=== PATIENT | female | born 1985 | race Caucasian/White ===

== ENCOUNTER → 2018-01-28 | Outpatient (CLI) | payer BC ==
[2018-01-28 13:13] VITALS: BMI 33.0
== END | disposition home or self-care (01) ==
LOC: DBWHC3 10:43
PROVIDERS: ATTEND Obstetrics & Gynecology Obstetrics
DX: O24.419 Gestational diabetes mellitus in pregnancy, unspecified control (principal); Z3A.00 Weeks of gestation of pregnancy not specified
CPT/HCPCS: G0108 ×2

== ENCOUNTER 2018-03-29 06:00 | Inpatient (IN) | payer BC ==
[2018-03-29] MEDS ORDERED: TERBUTALINE 1 MG/ML VIAL SQ PRN (06:19)
[2018-03-29] MEDS ORDERED: OXYTOCIN 10 UNIT/ML 1 ML VIAL IM PRN (06:19)
[2018-03-29] MEDS ORDERED: LIDOCAINE 1% (PF) 10 MG/ML (30 ML SDV) SQ PRN (06:19)
[2018-03-29] MEDS ORDERED: CARBOPROST TROMETHAMINE 250 MCG/ML 1 ML AMP IM PRN (06:19)
[2018-03-29] MEDS ORDERED: METHYLERGONOVINE 0.2 MG/ML 1 ML AMP IM PRN (06:19)
[2018-03-29] MEDS ORDERED: OXYTOCIN 20 UNITS/1000 ML NS 1,000 ML IV SCH ×2 (06:30→13:45)
[2018-03-29] MEDS ORDERED: LACTATED RINGERS 1,000 ML IV SCH (06:30)
[2018-03-29 06:39] LABS: Basophils % (A) 0 %; Eosinophils # (A) 0.1 k/uL (0-0.7); Eosinophils % (A) 1 %; HCT 43.5 % (34.0-46.0); HGB 14.4 gm/dL (11.4-16.0); Lymphocytes # (A) 1.8 k/uL (1.0-4.8); Lymphocytes % (A) 22 %; MCH 29.9 pg (25.0-35.0); MCV 90.6 fL (80.0-100.0); Mean Platelet Volume 8.6; Monocytes # (A) 0.5 k/uL (0-1.0); Monocytes % (A) 6 %; Neutrophils # (A) 5.7 k/uL (1.3-7.7); Neutrophils % (A) 69 %; Platelet Count 212 k/uL (150-450); RBC 4.81 m/uL (3.80-5.40); RDW 13.7 % (11.5-15.5); WBC 8.3 k/uL (3.8-10.6)
[2018-03-29 07:24] VITALS: BMI 36.5
[2018-03-29 09:03] LABS: HGB 14.1 gm/dL (11.4-16.0); MCH 30.5 pg (25.0-35.0); MCHC 33.5 g/dL (31.0-37.0); MCV 91.1 fL (80.0-100.0); Mean Platelet Volume 8.2; Platelet Count 188 k/uL (150-450); RBC 4.61 m/uL (3.80-5.40); RDW 13.7 % (11.5-15.5); WBC 9.2 k/uL (3.8-10.6)
[2018-03-29 09:12] LABS: ALT 47 U/L (9-52); AST 41 U/L (14-36); Blood Urea Nitrogen 15 mg/dL (7-17); LDH 502 U/L (313-618); Uric Acid 6.2 mg/dL (3.7-7.4)
[2018-03-29] MEDS ORDERED: LABETALOL 5 MG/ML VIAL MDV IVP STA (10:45)
[2018-03-29] MEDS ORDERED: SODIUM CHLORIDE 0.9% 100 ML BAG ONE (11:14)
[2018-03-29] MEDS ORDERED: BUPIVACAINE (PF) 0.25% 30 ML VIAL ONE (11:14)
[2018-03-29] MEDS ORDERED: fentaNYL (PF) 50 MCG/ML 5 ML AMP ONE (11:14)
[2018-03-29] MEDS ORDERED: CITRIC ACID-SODIUM CITRATE 15 ML CUP PO ONE (12:32)
[2018-03-29] MEDS ORDERED: ceFAZolin IN SWFI 2 GM/20 ML SYRINGE IVP ONE (12:32)
[2018-03-29] MEDS ORDERED: NALOXONE 0.4 MG/ML 1 ML VIAL IV PRN ×2 (12:51→13:39)
[2018-03-29] MEDS ORDERED: NALBUPHINE 10 MG/ML AMPUL IV PRN (12:51)
[2018-03-29] MEDS ORDERED: OXYTOCIN 10 UNIT/ML 1 ML VIAL ONE (12:58)
[2018-03-29] MEDS ORDERED: fentaNYL (PF) 50 MCG/ML 2 ML AMP ONE (12:58)
[2018-03-29] MEDS ORDERED: ONDANSETRON 4 MG/2 ML VIAL ONE (12:58)
[2018-03-29] MEDS ORDERED: LANOLIN CREAM 5 GM TUBE TOPICAL PRN (13:39)
[2018-03-29] MEDS ORDERED: HYDROcodone/APAP 5-325MG 1 EACH TAB PO PRN (13:39)
[2018-03-29] MEDS ORDERED: diphenhydrAMINE 25 MG CAP PO PRN (13:39)
[2018-03-29] MEDS ORDERED: ZOLPIDEM 5 MG TAB PO PRN (13:39)
[2018-03-29] MEDS ORDERED: METOCLOPRAMIDE 5 MG/ML 2 ML VIAL IVP PRN (13:39)
[2018-03-29] MEDS ORDERED: diphenhydrAMINE 50 MG CAP PO PRN (13:39)
[2018-03-29] MEDS ORDERED: diphenhydrAMINE 50 MG/ML 1 ML VIAL IVP PRN ×2 (13:39)
[2018-03-29] MEDS ORDERED: ONDANSETRON 4 MG/2 ML VIAL IVP PRN (13:39)
[2018-03-29] MEDS ORDERED: HYDROcodone/APAP 7.5-325MG 1 EACH TAB PO PRN (13:39)
--- NOTE | 2018-03-29 13:46 | P.HPOB ---
History of Present Illness H&P Date: 03/29/18 Chief Complaint: IUP at 39-1/7 weeks, IUGR This is a very pleasant 33-year-old 1 para 0 at 39-1/7 weeks that presents to labor and delivery for induction of labor secondary to IUGR. Patient has been followed closely throughout the with reassuring testing. Patient notes good movement denies vaginal bleeding notes an occasional contraction and overall is feeling well this morning. Of note she had gestational diabetes A1 which was well-controlled with diet and no concerns otherwise. On blood work showed a blood type of A+, rubella immune, hepatitis B surface antigen negative, HIV negative, GBS negative. Review of Systems Constitutional: Reports fatigue, Denies chills, Denies fever Cardiovascular: Reports edema Respiratory: Reports dyspnea, Denies cough Gastrointestinal: Denies constipation, Denies diarrhea Genitourinary: Reports Past Medical History Past Medical History: No Reported History History of Any Multi-Drug Resistant Organisms: None Reported Past Surgical History: No Surgical Hx Reported Past Anesthesia/Blood Transfusion Reactions: No Reported Reaction Past Psychological History: No Psychological Hx Reported Smoking Status: Never smoker Past Alcohol Use History: None Reported Past Drug Use History: None Reported - Past Family History Father Family Medical History: Diabetes Mellitus Medications and Allergies Home Medications Medication Instructions Recorded Confirmed Type 114/Iron A-G/Folate 1 1 each PO DAILY 01/28/18 01/28/18 History [Prenate Elite Tablet] Allergies Allergy/AdvReac Type Severity Reaction Status Date / Time red dye Allergy Intermediate Rash/Hives Verified 03/29/18 06:18 Exam Osteopathic Statement: *. No significant issues noted on an osteopathic structural exam other than those noted in the History and Physical/Consult. - Vital Signs Vital signs: Vital Signs Temp Pulse Resp BP 03/29/18 06:18 98.2 F 65 18 174/95 Intake and Output 03/28/18 03/29/18 03/29/18 22:59 06:59 14:59 Other: Weight 84.822 kg - OBG Physical Exam Abdomen: Gravid and appropriate for gestational age Cervix: 3, 80, -2 vertex presentation Uterus: enlarged Results Result Diagrams: 03/29/18 08:46 03/29/18 08:46 Abnormal Lab Results - Last 24 Hours (Table) 03/29/18 Range/Units 08:46 AST 41 H (14-36) U/L Assessment and Plan (1) Term Current Visit: Yes Status: Acute Code(s): Z34.80 - ENCOUNTER FOR SUPRVSN OF NORMAL , UNSP TRIMESTER SNOMED Code(s): 11903816 (2) IUGR (intrauterine growth restriction) Current Visit: Yes Status: Acute Code(s): DBT2133 - SNOMED Code(s): 61330787 Plan: We'll plan Pitocin induction of labor, once patient is in a labor pattern with contractions every 2 minutes we'll consider amniotomy. Patient states underneath understanding of the plan and we will continue forward. She does request an epidural for analgesia during this process. Time with Patient: Less than 30
[2018-03-29] MEDS ORDERED: CALCIUM CHLORIDE 500 MG in SODIUM CHLORIDE 0.9% 50 ML IVPB ONE (13:49)
[2018-03-29] MEDS ORDERED: MAGNESIUM SULFATE-WATER PMX 4 GM in WATER FOR INJECTION 50 50ML.BAG IVPB ONE (13:49)
--- NOTE | 2018-03-29 13:49 | P.OP ---
Date of Procedure: 03/29/18 Preoperative Diagnosis: IUP at 39 and 1, IUGR, severe preeclampsia Postoperative Diagnosis: Same Procedure(s) Performed: Primary low transverse section Anesthesia: epidural Surgeon: Anna Lin [employer] Childcare Attendant #1: Darrell Andre Estimated Blood Loss (ml): 400 IV fluids (ml): 700 Urine output (ml): 100 (Clear yellow) Pathology: other (Placenta) Condition: stable Disposition: observation Indications for Procedure: Significantly elevated blood pressures consistent with severe preeclampsia remote from delivery Operative Findings: Normal uterus tubes and ovaries were appreciated small posterior fibroid actually 1 cm was noted pedunculated nature Description of Procedure: The patient was prepped and draped in the usual fashion after spinal anesthesia was administered by anesthesia. A Pfannenstiel incision was made and extended of the abdominal cavity without difficulty. The bladder peritoneum was elevated and incised and reflected distally. A 2 cm incision was made in the transverse plane of the lower uterine segment to enter the uterus at which time clear fluid was noted. The incision was extended in both directions using the bandage scissors. The head was encountered within the field and delivered up and through the incision where the nose and mouth were thoroughly suctioned. Remainder of the infant was delivered onto the surgical field where the cord was doubly clamped, cut, and the infant was passed for resuscitative measures with weight and Apgars as noted above. A segment of cord was then doubly clamped, cut, and set aside should cord gases become necessary. The placenta was delivered manually, intact, and was grossly normal with a grossly normal three-vessel cord. The uterus was exteriorized and the interior cavity of the uterus swept of any remaining placental and membranous fragments with a laparotomy sponge. The margins of the incision were grasped with allis clamps and the incision closed in 2 layers. First layer was a running locking layer of 0 vicryl from margin to margin followed by a second layer of imbricating 0 vicryl from margin to margin. Any small points of bleeding were then made hemostatic with the Bovie. Once hemostasis was achieved, the posterior cul-de- sac was suctioned with a guard and the uterine and ovarian findings are as noted above. The uterus was replaced within the abdominal cavity and the gutters swept of any remaining blood fluid or clot. The incision was again reexamined and hemostasis was noted to be excellent. Any small point of bleeding were made hemostatic with the Bovie. Once hemostasis was achieved the parietal peritoneum was loosely reapproximated. The layer of muscles were examined and made hemostatic with the Bovie. Attention was then turned to the fascia which was closed with 2 running stitches of 0 Vicryl proceeding from the lateral margins to the midpoint. The subcutaneous tissues were irrigated, made hemostatic with the Bovie, and reapproximated with a running stitch of 30 vicryl. The skin was reapproximated with regular 4-0 vicryl. Estimated blood loss for the case was approximately 400 mL. All sponge instrument and needle counts are correct. There were no complications. The patient tolerated the procedure well and proceeded to the recovery room in stable condition. Both mother and infant are resting comfortably in recovery. weight 5-8 @ 1314, apgars 9-9 at 1 and 5 mins respectively
[2018-03-29] MEDS ORDERED: IBUPROFEN IV 800 MG in SODIUM CHLORIDE 0.9% 250 ML IV ONE (14:00)
[2018-03-29] MEDS: MAGNESIUM SULFATE-WATER PMX 20 GM in WATER FOR INJECTION 1 500ML.BAG IV SCH (14:55)
[2018-03-29] MEDS: LACTATED RINGERS 1,000 ML IV SCH (15:02)
[2018-03-29] MEDS ORDERED: LABETALOL 200 MG TAB PO STA (16:41)
[2018-03-29 17:41] LABS: HCT 41.3 % (34.0-46.0); HGB 14.1 gm/dL (11.4-16.0); MCH 31.1 pg (25.0-35.0); MCHC 34.1 g/dL (31.0-37.0); Mean Platelet Volume 8.4; Platelet Count 204 k/uL (150-450); RBC 4.54 m/uL (3.80-5.40); RDW 13.6 % (11.5-15.5); WBC 15.1 k/uL (3.8-10.6)
[2018-03-29 17:55] LABS: AST 45 U/L (14-36); Blood Urea Nitrogen 13 mg/dL (7-17); LDH 670 U/L (313-618); Uric Acid 6.1 mg/dL (3.7-7.4)
[2018-03-29 21:02] LABS: Hemoglobin A1C 5.8 % (4.0-6.0)
[2018-03-30] MEDS: MAGNESIUM SULFATE-WATER PMX 20 GM in WATER FOR INJECTION 1 500ML.BAG IV SCH (01:13)
[2018-03-30] MEDS: ACETAMINOPHEN TAB 325 MG TAB PO PRN ×2 (01:14→23:38)
[2018-03-30 06:48] LABS: Basophils % (A) 0 %; Eosinophils % (A) 0 %; HCT 36.9 % (34.0-46.0); HGB 12.2 gm/dL (11.4-16.0); Lymphocytes # (A) 1.5 k/uL (1.0-4.8); Lymphocytes % (A) 9 %; MCV 91.1 fL (80.0-100.0); Mean Platelet Volume 8.6; Monocytes # (A) 0.5 k/uL (0-1.0); Monocytes % (A) 3 %; Neutrophils # (A) 14.4 k/uL (1.3-7.7); Neutrophils % (A) 87 %; Platelet Count 173 k/uL (150-450); RBC 4.05 m/uL (3.80-5.40); WBC 16.5 k/uL (3.8-10.6)
[2018-03-30 07:00] LABS: ALT 37 U/L (9-52); AST 37 U/L (14-36); Blood Urea Nitrogen 12 mg/dL (7-17); LDH 578 U/L (313-618)
--- NOTE | 2018-03-30 07:32 | P.PNOBGPC ---
Subjective - Subjective Principal diagnosis: Postop day 1 status post primary low transverse section Interval history: Patient has done well overnight. Blood pressures are controlled 130s over 80s, magnesium infusion is still running. Her Jesus remains with clear yellow urine in the bag and tube. She has had minimal ambulation and was only up to the bedside with complaints of dizziness. She denies headache visual changes or right upper quadrant pain. She states her pain is well-controlled. She denies nausea or vomiting and is tolerating clear liquids. Her lochia is minimal at this time. She is attempting breast-feeding but is struggling with latch at this time and will see the consult this morning Patient reports: Reports pain well controlled (Jesus remains and we will plan to discontinue after the magnesium was discontinued approximately noon today if labs and blood pressures remained controlled.) : doing well Objective - Vital Signs Latest vital signs: Vital Signs Temp Pulse Resp BP Pulse Ox 03/30/18 07:00 16 03/30/18 05:00 16 03/30/18 04:00 98.1 F 77 16 130/69 03/30/18 03:00 16 03/30/18 01:00 16 03/29/18 23:00 16 03/29/18 21:00 16 98 03/29/18 20:10 96.6 F L 77 16 122/64 03/29/18 19:00 16 03/29/18 16:43 16 97 03/29/18 16:09 97.8 F 77 16 166/88 03/29/18 15:48 16 03/29/18 15:45 69 16 152/80 03/29/18 15:15 96.8 F L 63 16 156/83 03/29/18 14:45 72 16 156/82 03/29/18 14:30 65 16 151/80 03/29/18 14:15 65 16 166/88 03/29/18 14:00 97.6 F 66 16 159/86 03/29/18 13:51 16 98 03/29/18 13:49 74 16 130/66 03/29/18 12:51 96 Intake and Output 03/29/18 03/30/18 03/30/18 22:59 06:59 14:59 Intake Total 175 500 Output Total 1150 1700 Balance -975 -1200 Intake: Intake, IV Titration 175 500 Amount Magnesium Sulfate-Water 50 500 Pmx 20 gm In Water For Injection 1 500ml.bag @ 2 GM/HR 50 mls/hr IV .Q10H [facility] Rx#:[id number] Magnesium Sulfate-Water 50 Pmx 4 gm In Water For Injection 50 50ml.bag @ 150 mls/hr IVPB ONCE ONE Rx#:[id number] Oxytocin 20 Units/1000 ml 75 Ns 1,000 ml @ Per Protocol IV .Q0M [facility] Rx#: [id number] Output: Urine 750 1700 Estimated Blood Loss 400 Other: Voiding Method Indwelling Catheter # Voids 1 - Exam Abdomen: Present: normal appearance, soft Incision: Present: normal, dry, intact Uterus: Present: firm - Labs Labs: Abnormal Lab Results - Last 24 Hours (Table) 03/29/18 03/29/18 03/29/18 Range/Units 08:46 17:32 17:32 WBC 15.1 H (3.8-10.6) k/uL Neutrophils # (1.3-7.7) k/uL AST 41 H 45 H (14-36) U/L Lactate Dehydrogenase 670 H (313-618) U/L 03/30/18 03/30/18 Range/Units 06:30 06:30 WBC 16.5 H (3.8-10.6) k/uL Neutrophils # 14.4 H (1.3-7.7) k/uL AST 37 H (14-36) U/L Lactate Dehydrogenase (313-618) U/L Assessment and Plan (1) Term Current Visit: Yes Status: Acute Code(s): Z34.80 - ENCOUNTER FOR SUPRVSN OF NORMAL , UNSP TRIMESTER SNOMED Code(s): 59946800 (2) IUGR (intrauterine growth restriction) Current Visit: Yes Status: Acute Code(s): IRM2088 - SNOMED Code(s): 68949463 (3) Pre-eclampsia Current Visit: Yes Status: Acute Code(s): O14.90 - UNSPECIFIED PRE-ECLAMPSIA , UNSPECIFIED TRIMESTER SNOMED Code(s): 202482500 Plan: will plan to continue current post op care. We'll plan to discontinue magnesium gtt approximately noon today.
[2018-03-30] MEDS: IBUPROFEN 600 MG TAB PO PRN ×3 (08:37→23:38)
[2018-03-30] MEDS: SENNOSIDES-DOCUSATE SODIUM 1 EACH TAB PO SCH ×3 (08:39→22:45)
--- NOTE | 2018-03-30 15:20 | P.PN ---
Progress Note - Text Date: 03/30/2018 The patient is status post section Vital signs stable VAS:[ 0-10] Patient has no complaints of pain. The patient incurred some minimal itching yesterday, this itching is now subsiding. Pain meds to be managed by service.
[2018-03-30] MEDS: LABETALOL 100 MG TAB PO STA (21:08)
[2018-03-30] MEDS: PRENATAL VIT-IRON-FOLIC ACID 1 EACH CAP PO SCH (22:45)
[2018-03-31] MEDS ORDERED: LABETALOL 200 MG TAB PO STA (00:39)
[2018-03-31] MEDS: LABETALOL 100 MG TAB PO STA (00:47)
[2018-03-31] MEDS ORDERED: SIMETHICONE 80 MG CHEWABLE PO ONE (00:53)
[2018-03-31 05:32] LABS: HCT 33.6 % (34.0-46.0); MCH 29.8 pg (25.0-35.0); MCHC 32.8 g/dL (31.0-37.0); MCV 90.8 fL (80.0-100.0); Mean Platelet Volume 8.8; Platelet Count 183 k/uL (150-450); WBC 12.9 k/uL (3.8-10.6)
[2018-03-31 05:41] LABS: ALT 36 U/L (9-52); AST 32 U/L (14-36); Blood Urea Nitrogen 13 mg/dL (7-17); LDH 616 U/L (313-618); Uric Acid 5.6 mg/dL (3.7-7.4)
[2018-03-31] MEDS: IBUPROFEN 600 MG TAB PO PRN ×2 (06:35→18:39)
--- NOTE | 2018-03-31 08:28 | P.PNOBGPC ---
Subjective - Subjective Principal diagnosis: POD2 LTCS, severe preeclampsia, IUGR Interval history: Patient has been doing well postoperatively. She is taking Tylenol and Motrin for her pain. She sticks her lochia is moderate, she is tolerating regular diet without nausea or vomiting. She is breast-feeding with mild difficulty. Her blood pressures overnight were noted to be slightly elevated and she did receive labetalol 100 mg 2 po. She denies headache visual changes, or right upper quadrant pain. Patient reports: Reports appetite normal, Reports voiding normally, Reports pain well controlled, Reports ambulating normally [place]: doing well, nursing well Objective - Vital Signs Latest vital signs: Vital Signs Temp Pulse Resp BP BP Pulse Ox 03/31/18 04:00 98 F 78 16 142/79 99 03/31/18 02:00 16 03/31/18 00:00 98.5 F 96 16 165/96 99 03/30/18 22:00 16 03/30/18 20:20 98.1 F 93 16 166/96 97 03/30/18 19:00 14 03/30/18 16:51 14 03/30/18 16:00 98 F 85 16 141/91 03/30/18 15:00 16 03/30/18 13:00 16 03/30/18 12:00 98 F 82 14 136/67 03/30/18 11:00 16 03/30/18 09:00 16 Intake and Output 03/30/18 03/31/18 03/31/18 22:59 06:59 14:59 Output Total 500 Balance -500 Output: Urine 500 Other: # Voids 1 - Exam Extremities: Present: edema Abdomen: Present: normal appearance, soft Incision: Present: normal, dry, intact Uterus: Present: firm - Labs Labs: Abnormal Lab Results - Last 24 Hours (Table) 03/31/18 Range/Units 05:16 WBC 12.9 H (3.8-10.6) k/uL RBC 3.70 L (3.80-5.40) m/uL Hgb 11.0 L (11.4-16.0) gm/dL Hct 33.6 L (34.0-46.0) % Assessment and Plan (1) Term Current Visit: Yes Status: Acute Code(s): Z34.80 - ENCOUNTER FOR SUPRVSN OF NORMAL , UNSP TRIMESTER SNOMED Code(s): 78360601 (2) IUGR (intrauterine growth restriction) Current Visit: Yes Status: Acute Code(s): DLI7376 - SNOMED Code(s): 33784813 (3) Pre-eclampsia Current Visit: Yes Status: Acute Code(s): O14.90 - UNSPECIFIED PRE-ECLAMPSIA , UNSPECIFIED TRIMESTER SNOMED Code(s): 641465537 Plan: We'll plan to start patient on labetalol 200 mg twice daily for blood pressure control. She states understanding of this plan we will monitor closely she does wish discharge home later today if possible we will monitor blood pressures to see if this is a possibility. Most likely she will need to stay until the morning to ensure her blood pressures are well controlled prior to discharge. In addition she is complaining of some ear pain and as predisposed to otitis media therefore we will begin antibiotic treatment.
[2018-03-31] MEDS: SENNOSIDES-DOCUSATE SODIUM 1 EACH TAB PO SCH ×2 (09:39→21:08)
[2018-03-31] MEDS: LABETALOL 200 MG TAB PO SCH ×2 (09:47→19:57)
[2018-03-31] MEDS: AZITHROMYCIN 500 MG TAB PO SCH (09:48)
[2018-03-31] MEDS: ACETAMINOPHEN TAB 325 MG TAB PO PRN ×2 (13:03→22:51)
[2018-03-31] MEDS: PRENATAL VIT-IRON-FOLIC ACID 1 EACH CAP PO SCH (13:04)
[2018-03-31] MEDS: LACTATED RINGERS 1,000 ML IV SCH ×2 (21:10→21:11)
[2018-03-31] MEDS: MAGNESIUM SULFATE-WATER PMX 20 GM in WATER FOR INJECTION 1 500ML.BAG IV SCH (21:10)
[2018-04-01] MEDS: IBUPROFEN 600 MG TAB PO PRN ×4 (01:41→23:45)
--- NOTE | 2018-04-01 08:18 | P.DS ---
Providers Date of admission: 03/29/18 06:09 Expected date of discharge: 04/01/18 Attending physician: Anna Lin Primary care physician: Stated None - Discharge Diagnosis(es) (1) Term Current Visit: Yes Status: Acute (2) IUGR (intrauterine growth restriction) Current Visit: Yes Status: Acute (3) Pre-eclampsia Current Visit: Yes Status: Acute (4) S/P section Current Visit: Yes Status: Acute Hospital Course: This is a very pleasant 33-year-old 1 para 0 that presented to labor and delivery for induction of labor secondary to intrauterine growth resection. Patient was begun on Pitocin induction of labor. She progressed slowly through labor eventually noting elevated blood pressures to 160s to 190s over low 100s. HEELP labs were obtained and liver enzymes were noted to be slightly elevated the decision was then made to proceed with primary low transverse section secondary to elevated blood pressures consistent with severe preeclampsia. For further details on the please see the operative report. Patient's postoperative course has been uneventful. Her blood pressure is been controlled with labetalol 200 mg twice daily. She states her pain is well-controlled on this postop day #3. She is ambulating and voiding without difficulty. She is tolerating a regular diet without nausea or vomiting and she is breast-feeding with minimal difficulties. She is needing to supplement with formula but is continuing to pump. Plan - Discharge Summary New Discharge Prescriptions: No Action 114/Iron A-G/Folate 1 [Prenate Elite Tablet] 1 each PO DAILY Discharge Medication List 114/Iron A-G/Folate 1 [Prenate Elite Tablet] 1 each PO DAILY 01/28/18 [ History] Follow up Appointment(s)/Referral(s): Anna Lin DO [Doctor of Osteopathic Medicine] - 1 Week Patient Instructions/Handouts: (DC) Discharge Disposition: HOME SELF-CARE
[2018-04-01] MEDS: LABETALOL 200 MG TAB PO SCH (08:54)
[2018-04-01] MEDS: PRENATAL VIT-IRON-FOLIC ACID 1 EACH CAP PO SCH (08:55)
[2018-04-01] MEDS: AZITHROMYCIN 500 MG TAB PO SCH (08:55)
[2018-04-01] MEDS: SENNOSIDES-DOCUSATE SODIUM 1 EACH TAB PO SCH ×2 (09:29→21:29)
[2018-04-01] MEDS ORDERED: LABETALOL 100 MG TAB PO STA (11:12)
[2018-04-01] MEDS: ACETAMINOPHEN TAB 325 MG TAB PO PRN (20:47)
[2018-04-01] MEDS ORDERED: LABETALOL 100 MG TAB PO SCH (21:00)
[2018-04-02] MEDS ORDERED: LABETALOL 100 MG TAB PO STA (04:16)
[2018-04-02] MEDS: IBUPROFEN 600 MG TAB PO PRN (07:59)
[2018-04-02] MEDS: LABETALOL 100 MG TAB PO SCH ×2 (07:59→15:45)
[2018-04-02] MEDS: AZITHROMYCIN 500 MG TAB PO SCH (08:00)
[2018-04-02] MEDS ORDERED: NIFEdipine 10 MG CAP PO ONE (08:00)
[2018-04-02] MEDS: PRENATAL VIT-IRON-FOLIC ACID 1 EACH CAP PO SCH (08:02)
[2018-04-02] MEDS: SENNOSIDES-DOCUSATE SODIUM 1 EACH TAB PO SCH (08:36)
[2018-04-02 08:46] VITALS: RESP 16
[2018-04-02] MEDS ORDERED: LABETALOL 100 MG TAB PO SCH (09:00)
--- NOTE | 2018-04-02 09:35 | P.PNOBGPC ---
Subjective - Subjective Principal diagnosis: POD 4 LTCS, severe preeclampsia, IUGR Interval history: Patient was noted to have elevated blood pressures overnight 150s to 160s over 90s to low 100s. She continues to deny complaints of headache visual changes or abdominal pain not associated with her incision. Her lochia is minimal she is breast feeding with some difficulties. She is tolerating a regular diet without nausea or vomiting and she denies pain at this time. Patient reports: Reports appetite normal, Reports voiding normally, Reports pain well controlled, Reports ambulating normally : doing well Objective - Vital Signs Latest vital signs: Vital Signs Temp Pulse Resp BP BP Pulse Ox 04/02/18 08:00 97.8 F 75 16 145/91 98 04/02/18 05:45 147/105 04/02/18 04:01 70 148/109 04/02/18 04:00 77 14 158/111 04/01/18 23:30 98.0 F 67 18 163/109 159/100 04/01/18 20:51 72 18 153/97 04/01/18 16:00 97.7 F 64 18 153/94 04/01/18 11:09 69 173/97 - Exam Lungs: bilateral: normal Extremities: Present: edema Abdomen: Present: soft Incision: Present: normal, dry, intact Uterus: Present: firm Assessment and Plan (1) Term Current Visit: Yes Status: Acute Code(s): Z34.80 - ENCOUNTER FOR SUPRVSN OF NORMAL , UNSP TRIMESTER SNOMED Code(s): 29328430 (2) IUGR (intrauterine growth restriction) Current Visit: Yes Status: Acute Code(s): SKG0122 - SNOMED Code(s): 76834195 (3) Pre-eclampsia Current Visit: Yes Status: Acute Code(s): O14.90 - UNSPECIFIED PRE-ECLAMPSIA , UNSPECIFIED TRIMESTER SNOMED Code(s): 675658827 (4) S/P section Current Visit: Yes Status: Acute Code(s): Z98.891 - HISTORY OF UTERINE SCAR FROM PREVIOUS SURGERY SNOMED Code(s): 212061089 Plan: procardia added to her labetalol 300mg tid, will monitor BPs closely today and of they normalize with the addition we will consider d/c home tonight. she understands the plan and questions answered. All labs reviewed with pt and questions answered (they have normalized)
[2018-04-02] MEDS: ACETAMINOPHEN TAB 325 MG TAB PO PRN (13:27)
[2018-04-02 15:55] VITALS: BP 141/78; PULSE 86; TEMP 98.4
== END 2018-04-02 16:00 | disposition home or self-care (01) | DRG 766 ==
LOC: 4FBP 06:09 → UNDODISIN 04-02 14:30
PROVIDERS: ADMIT Obstetrics & Gynecology Obstetrics; ATTEND Obstetrics & Gynecology Obstetrics
PROC: 3E0R3NZ Introduction of Analgesics, Hypnotics, Sedatives into Spinal Canal, Percutaneous Approach (ICD-10-PCS; principal; 2018-03-29 13:07)
PROC: 3E033VJ Introduction of Other Hormone into Peripheral Vein, Percutaneous Approach (ICD-10-PCS; principal; 2018-03-29 13:07)
PROC: 00HU33Z Insertion of Infusion Device into Spinal Canal, Percutaneous Approach (ICD-10-PCS; principal; 2018-03-29 13:07)
PROC: 10D00Z1 Extraction of Products of Conception, Low, Open Approach (ICD-10-PCS; principal; 2018-03-29 13:07)
DX: O36.5930 Maternal care for other known or suspected poor fetal growth, third trimester, not applicable or unspecified (principal); O14.14 Severe pre-eclampsia complicating childbirth; O24.420 Gestational diabetes mellitus in childbirth, diet controlled; O34.13 Maternal care for benign tumor of corpus uteri, third trimester; D25.9 Leiomyoma of uterus, unspecified; H92.09 Otalgia, unspecified ear; Z37.0 Single live birth; Z3A.39 39 weeks gestation of pregnancy; Z83.3 Family history of diabetes mellitus; Z91.02 Food additives allergy status
CPT/HCPCS: 82565; 83036; 83615; 84450; 84460; 84520; 84550; 85025; 85027; 88307

== ENCOUNTER → 2021-09-18 | Outpatient (CLI) | payer OTHER | END | disposition home or self-care (01) | LOC: LABWHC1 09:29 | PROVIDERS: ATTEND Obstetrics & Gynecology Obstetrics | DX: O20.0 Threatened abortion (principal); Z3A.00 Weeks of gestation of pregnancy not specified | CPT/HCPCS: 36415; 84144; 84702; 86701; 86850; 86900; 86901 ==

== ENCOUNTER 2022-07-27 01:55 | Inpatient (IN) | payer OTHER ==
[2022-07-27] MEDS: LACTATED RINGERS 1,000 ML IV SCH ×3 (02:25→08:47)
[2022-07-27 02:31] LABS: Glucose,Whole Blood 88 mg/dL (70-110)
[2022-07-27] MEDS ORDERED: LIDOCAINE 0.5% (PF) 5 MG/ML (50 ML SDV) SQ PRN (02:40)
[2022-07-27] MEDS ORDERED: METHYLERGONOVINE 0.2 MG/ML 1 ML AMP IM PRN (02:40)
[2022-07-27] MEDS ORDERED: CARBOPROST TROMETHAMINE 250 MCG/ML 1 ML AMP IM PRN (02:40)
[2022-07-27] MEDS ORDERED: TERBUTALINE 1 MG/ML VIAL SQ PRN (02:40)
[2022-07-27] MEDS ORDERED: OXYTOCIN 10 UNIT/ML 1 ML VIAL IM PRN (02:40)
[2022-07-27 02:56] LABS: Basophils # (A) 0.1 k/uL (0-0.2); Basophils % (A) 1 %; Eosinophils # (A) 0.1 k/uL (0-0.7); Eosinophils % (A) 1 %; HGB 12.8 gm/dL (11.4-16.0); Hypochromasia Slight; Lymphocytes # (A) 2.3 k/uL (1.0-4.8); Lymphocytes % (A) 21 %; MCH 26.5 pg (25.0-35.0); MCHC 30.4 g/dL (31.0-37.0); MCV 87.2 fL (80.0-100.0); Mean Platelet Volume 10.3; Monocytes # (A) 0.7 k/uL (0-1.0); Monocytes % (A) 6 %; Neutrophils # (A) 7.6 k/uL (1.3-7.7); Neutrophils % (A) 69 %; Platelet Count 293 k/uL (150-450); RBC 4.82 m/uL (3.80-5.40); RDW 13.4 % (11.5-15.5); WBC 11.1 k/uL (3.8-10.6)
[2022-07-27] MEDS ORDERED: OXYTOCIN 30 UNITS/500 ML NS 30 UNIT in SALINE 1 500ML.BAG IV SCH (06:45)
[2022-07-27] MEDS ORDERED: ROPIVACAINE 100 MG, fentaNYL (PF). 200 MCG in SODIUM CHLORIDE 0.9% 76 ML EPIDURAL ONE (07:07)
[2022-07-27] MEDS ORDERED: CITRIC ACID-SODIUM CITRATE 15 ML CUP PO ONE ×2 (09:07)
[2022-07-27] MEDS ORDERED: MORPHINE SULFATE (PF) 0.3 MG/0.3 ML SYR ONE (09:23)
[2022-07-27] MEDS ORDERED: ONDANSETRON 4 MG/2 ML VIAL ONE (09:23)
[2022-07-27] MEDS ORDERED: OXYTOCIN 30 UNITS/500 ML NS BAG IV ONE (09:23)
[2022-07-27] MEDS ORDERED: ePHEDrine 50 MG/ML 1 ML VIAL ONE (09:23)
[2022-07-27] MEDS ORDERED: NALBUPHINE 10 MG/ML (1 ML AMP) ONE (09:23)
[2022-07-27] MEDS ORDERED: ONDANSETRON 4 MG/2 ML VIAL IVP PRN (09:57)
[2022-07-27] MEDS ORDERED: NALOXONE 0.4 MG/ML 1 ML VIAL IV PRN (09:57)
[2022-07-27] MEDS ORDERED: diphenhydrAMINE 50 MG/ML 1 ML VIAL IVP PRN (09:57)
[2022-07-27] MEDS ORDERED: MORPHINE SULFATE 2 MG/ML SYRINGE IVP PRN (09:57)
--- NOTE | 2022-07-27 10:19 | P.OP ---
Date of Procedure: 07/27/22 Preoperative Diagnosis: IUP @ 39 1/7 weeks, SROM, non reassuring heart tones Postoperative Diagnosis: same Procedure(s) Performed: Repeat section Anesthesia: epidural Surgeon: Anna Lin Veneer Glue Spreader #1: Citlali Garcia Estimated Blood Loss (ml): 350 IV fluids (ml): 500 Urine output (ml): 50 Pathology: other (placenta) Condition: stable Disposition: observation Indications for Procedure: 37-year-old at 39 and one sevenths weeks that presented overnight with complaints of spontaneous rupture of membranes. Patient was noted to be fabiana spontaneously in addition. Patient received an epidural for pain control. Patient subsequently noted increased pain and pressure was noted to be 5-6 cm and requested epidural bolus. Epidural bolus was given by anesthesia. A deceleration was appreciated after bolus secondary to hypotension. Patient return to baseline but late decelerations began. Multiple position changes were attempted with another deceleration appreciated. At that time patient was counseled for repeat section, secondary to nonreassuring heart tones. Patient states understanding and is in agreement with the plan. Operative Findings: Viable male infant delivered at 942, weight 8 lbs. 0 oz., Apgars of 9 and 10 at one and 5 minutes respectively. Omental adhesions were appreciated to the anterior abdominal wall dense subcutaneous rectus scarring was appreciated, polycystic ovaries were appreciated bilaterally Description of Procedure: Patient was taken back to the operating suite where epidural anesthesia was found be adequate. She was then prepped and draped in normal sterile fashion in the dorsal supine position. A Pfannenstiel skin incision was made the scalpel and carried through the underlying layer fascia. Significant subcu scarring was appreciated and taken off sharply. The fascia was then incised in the midline and extended laterally. Superior aspect of the fascial incision was then grasped edwardo clamps, elevated and underlying rectus muscles dissected off sharply, the inferior aspect of the fascial incision was then grasped edwardo clamps, elevated and underlying rectus muscles dissected off sharply. The rectus muscles were noted to have a small defect with omental adherence to the rectus muscles/anterior abdominal wall. These were taken down sharply and with the Bovie. The incision was then extended superiorly and inferiorly with good visualization the bladder. The bladder blade was then inserted into the pelvis and the vesicouterine peritoneum was identified and the bladder flap was created using sharp and blunt dissection. A scalpel was used to make a hysterotomy incision clear fluid was obtained, the infant was noted to be in the vertex presentation and delivered in the usual fashion. Spontaneous cry was noted at . The placenta was then delivered manually intact with a three-vessel cord being noted. The uterus cleared of all clots and debris. The uterus was delivered from the abdomen. The uterine incision was closed with 0 Vicryl in a running locked fashion, a second imbricating suture was performed. Hemostasis was appreciated. The uterus was turned the abdomen. The gutters were cleared of all clots and debris. The hysterotomy incision was inspected hemostasis was appreciated. The rectus muscles were loosely reapproximated in any points of bleeding were made hemostatic with the Bovie. The fascia was then closed with 0 Vicryl in a running fashion from one lateral edge to the other. The subcutaneous tissue was irrigated and any points of bleeding were made hemostatic with the Bovie. The subcutaneous tissue was then closed with 3-0 Vicryl in a running fashion. The skin was then closed with 4-0 Vicryl in a subcuticular fashion. Steri-Strips and sterile dressings were applied. All counts were noted be correct 2. Patient and tolerated delivery well and are resting comfortably.
--- NOTE | 2022-07-27 10:21 | P.HPOB ---
History of Present Illness H&P Date: 07/27/22 Chief Complaint: IUP at 39 and one sevenths weeks, spontaneous rupture of me mbranes This is a 37-year-old 011 at 39 and one sevenths weeks that presented to labor and delivery with spontaneous rupture of membranes. Patient stated the fluid was clear at home. Patient has been receiving routine care which has been complicated by gestational diabetes, well-controlled with diet. Patient does have a history of preeclampsia but blood pressures this have been well controlled. Patient initially did want to proceed with a repeat section but given rupture of membranes decided she would like to attempt a trial of labor. Patient was admitted to labor and delivery and was noted to be fabiana. Patient did request an epidural through the night. Upon my arrival to labor and delivery patient was noted to be fabiana every 2 minutes. Reassuring heart tones were noted initially. Patient had noted increased pain therefore epidural bolus was given. Initial deceleration was appreciated secondary to a drop in the patient's blood pressure. late decelerations did follow the initial deceleration, and noted hypotension. Patient had multiple attempts of position changes, with continued late decelerations. Patient desires repeat secondary to nonreassuring heart tones. On bloodwork this patient is a blood type of A+, rubella status immune, hepatitis B surface antigen negative, HIV nonreactive, RPR nonreactive, group beta strep cultures are negative. Review of Systems Constitutional: Denies chills, Denies fatigue, Denies fever Ears, nose, mouth and throat: Denies headache Cardiovascular: Reports leg edema Respiratory: Denies dyspnea Gastrointestinal: Denies nausea, Denies vomiting Past Medical History Past Medical History: No Reported History History of Any Multi-Drug Resistant Organisms: None Reported Past Surgical History: No Surgical Hx Reported Past Anesthesia/Blood Transfusion Reactions: No Reported Reaction Past Psychological History: No Psychological Hx Reported Smoking Status: Never smoker Past Alcohol Use History: None Reported Past Drug Use History: None Reported - Past Family History Father Family Medical History: Diabetes Mellitus, Hyperlipidemia, Hypertension Mother Family Medical History: Diabetes Mellitus, Hypertension Medications and Allergies Home Medications Medication Instructions Recorded Confirmed Type Aspirin [[place] Aspirin EC] 81 mg PO DAILY 07/27/22 07/27/22 History Vit No.179/Iron/Folic 1 tablet PO DAILY 07/27/22 07/27/22 History [ Tablet] Allergies Allergy/AdvReac Type Severity Reaction Status Date / Time No Known Allergies Allergy Verified 07/27/22 02:29 Exam Osteopathic Statement: *. No significant issues noted on an osteopathic stru ctural exam other than those noted in the History and Physical/Consult. Intake and Output 07/26/22 07/27/22 07/27/22 22:59 06:59 14:59 Intake Total 1000 Output Total 75 Balance 925 Intake: IV 1000 Output: Urine 75 Other: Weight 83.007 kg Targeted physical exam is performed in general this a well-nourished well-developed female in no acute distress and she was received an epidural prior to my arrival, heart tones are noted noted to be category 2 with late decelerations moderate variability in between is appreciated. On cervical exam she is 6 cm/ 80/-2 cervical swelling is appreciated, she is contr acting every 2 minutes. Results Result Diagrams: 07/27/22 02:30 Abnormal Lab Results - Last 24 Hours (Table) 07/27/22 Range/Units 02:30 WBC 11.1 H (3.8-10.6) k/uL MCHC 30.4 L (31.0-37.0) g/dL Assessment and Plan (1) SROM (spontaneous rupture of membranes) Current Visit: Yes Status: Acute Code(s): SQL0353 - SNOMED Code(s): 976371312 (2) H/O section Current Visit: Yes Status: Acute Code(s): Z98.891 - HISTORY OF UTERINE SCAR FROM PREVIOUS SURGERY SNOMED Code(s): 832519926 (3) Term Current Visit: No Status: Acute Code(s): Z34.80 - ENCOUNTER FOR SUPRVSN OF NORMAL , UNSP TRIMESTER SNOMED Code(s): 14332571 (4) AMA (advanced maternal age) multigravida 35+ Current Visit: Yes Status: Acute Code(s): O09.529 - SUPERVISION OF ELDERLY MULTIGRAVIDA, UNSPECIFIED TRIMESTER SNOMED Code(s): 356856752 Plan: 37-year-old at 39 and one sevenths weeks presents to labor and delivery with spontaneous rupture of membranes, patient was noted to be 3 cm initially. Patient was admitted to labor and delivery and initially made progress to labor. Patient received an epidural for pain control. Patient had noted deceleration of heart tones with return to baseline, late decelerations have followed the initial deceleration, secondary to these findings and recommended repeat section secondary to nonreassuring heart tones. Patient is in agreement of this plan. All questions are answered. Patient denies concerns and wishes to proceed with RCS.
[2022-07-27] MEDS ORDERED: ACETAMINOPHEN IV (For NPO) 1,000 MG in EMPTY BAG 1 BAG IVPB ONE (11:03)
[2022-07-27] MEDS ORDERED: IBUPROFEN IV 800 MG in SODIUM CHLORIDE 0.9% 250 ML IV ONE (17:00)
[2022-07-27] MEDS: diphenhydrAMINE 2% CREAM 28.4 GM TUBE TOPICAL SCH (17:50)
[2022-07-28] MEDS: IBUPROFEN 600 MG TAB PO SCH ×4 (00:02→19:54)
[2022-07-28] MEDS: diphenhydrAMINE 2% CREAM 28.4 GM TUBE TOPICAL SCH ×4 (06:42→23:10)
[2022-07-28] MEDS: LACTATED RINGERS 1,000 ML IV SCH (06:42)
[2022-07-28] MEDS: PRENATAL VIT-IRON-FOLIC ACID 1 EACH TABLET PO SCH (08:02)
--- NOTE | 2022-07-28 08:30 | P.PNOBGPC ---
Subjective - Subjective Principal diagnosis: Postop day 1, repeat section Interval history: Patient is doing well postoperatively. She is ambulating and voiding without difficulty. She is tolerating a regular diet without nausea or vomiting. Suture lochia is minimal. She is breast-feeding without difficulty. Patient reports: Reports appetite normal, Reports voiding normally, Reports pain well controlled, Reports ambulating normally : doing well, nursing well Objective - Vital Signs Latest vital signs: Vital Signs Temp Pulse Resp BP Pulse Ox 07/28/22 08:00 98.1 F 71 15 136/87 98 07/28/22 06:00 16 07/28/22 04:00 98.7 F 80 16 110/80 100 07/28/22 02:00 16 07/28/22 00:00 98 F 72 16 118/62 07/27/22 23:09 16 98 07/27/22 22:00 16 07/27/22 20:00 98.1 F 71 16 121/64 99 07/27/22 18:00 18 07/27/22 16:00 78 18 118/63 98 07/27/22 12:57 18 07/27/22 12:11 97.1 F L 60 18 162/77 96 07/27/22 11:41 67 17 126/62 100 07/27/22 11:11 96.7 F L 76 18 161/67 100 07/27/22 10:57 18 100 07/27/22 10:56 69 18 137/64 100 07/27/22 10:41 80 18 134/63 98 07/27/22 10:26 76 18 124/58 97 07/27/22 10:11 96.5 F L 72 18 122/58 97 07/27/22 09:57 18 Intake and Output 07/27/22 07/28/22 07/28/22 22:59 06:59 14:59 Output Total 1150 1250 Balance -1150 -1250 Output: Urine 1150 1250 Uretheral (Jesus) 1150 Other: Voiding Method Indwelling Catheter # Voids 1 - Exam Extremities: Present: normal, edema Abdomen: Present: normal appearance Incision: Present: normal, intact Uterus: Present: normal, firm Assessment and Plan (1) SROM (spontaneous rupture of membranes) Current Visit: Yes Status: Acute Code(s): CAS8847 - SNOMED Code(s): 427838655 (2) H/O section Current Visit: Yes Status: Acute Code(s): Z98.891 - HISTORY OF UTERINE SCAR FROM PREVIOUS SURGERY SNOMED Code(s): 100046684 (3) Term Current Visit: No Status: Acute Code(s): Z34.80 - ENCOUNTER FOR SUPRVSN OF NORMAL , UNSP TRIMESTER SNOMED Code(s): 61532826 (4) AMA (advanced maternal age) multigravida 35+ Current Visit: Yes Status: Acute Code(s): O09.529 - SUPERVISION OF ELDERLY MULTIGRAVIDA, UNSPECIFIED TRIMESTER SNOMED Code(s): 798298318 Plan: Patient is doing well postoperatively. Plan to continue routine postoperative care, anticipate discharge home tomorrow
--- NOTE | 2022-07-28 08:45 | P.PN ---
Progress Note - Text Progress Note Date: 07/28/22 POD 1 c section with spinal duramorph. doing well, pain controlled. pruritis yesterday, none today. Mild itching on back but tolerable. able to ambulate, urinating, and passing flatus. no numbness/tingling in lower ext. Pain 2/10 with movement only.
[2022-07-28] MEDS: ACETAMINOPHEN TAB 500 MG TAB PO PRN ×3 (10:54→23:09)
[2022-07-28 16:18] VITALS: RESP 16
[2022-07-28] MEDS: SENNOSIDES-DOCUSATE SODIUM 1 EACH TAB PO SCH (20:20)
[2022-07-29] MEDS: IBUPROFEN 600 MG TAB PO SCH ×2 (04:48→10:51)
[2022-07-29] MEDS: PRENATAL VIT-IRON-FOLIC ACID 1 EACH TABLET PO SCH (07:51)
[2022-07-29] MEDS: ACETAMINOPHEN TAB 500 MG TAB PO PRN (07:51)
[2022-07-29] MEDS: diphenhydrAMINE 2% CREAM 28.4 GM TUBE TOPICAL SCH (07:52)
[2022-07-29 08:01] VITALS: BP 142/74; PULSE 61; TEMP 97.5
--- NOTE | 2022-07-29 08:51 | P.DS ---
Providers Date of admission: 07/27/22 01:55 Expected date of discharge: 07/29/22 Attending physician: Anna Lin Primary care physician: Stated None - Discharge Diagnosis(es) (1) SROM (spontaneous rupture of membranes) Current Visit: Yes Status: Acute (2) H/O section Current Visit: Yes Status: Acute (3) Term Current Visit: No Status: Acute (4) AMA (advanced maternal age) multigravida 35+ Current Visit: Yes Status: Acute Hospital Course: 37 yo that presented to labor and delivery at 39 and one sevenths weeks with complaints of contractions and spontaneous rupture of membranes. Patient was admitted overnight with plans for a trial labor after . Patient received an epidural. Patient was noted to be 5-6 cm epidural bolus was given secondary to increasing pain, a deceleration was appreciated after the bolus most likely secondary to hypotension. Return to baseline was noted but late decelerations began, multiple position changes were attempted with another spontaneous D cell appreciated. At that time patient was counseled for need for repeat section secondary to nonreassuring heart tones. Patient states understanding and was in agreement with the plan. Patient was taken back for repeat section. was performed without difficulty. For full details on the please see the operative report. Patient delivered a viable male infant at 942 on 07/27, weight of 8 lbs. 0 oz. Of note omental adhesions were appreciated to the anterior abdominal wall upon entry to the abdomen. Patient's postoperative course was essentially uncomplicated. Patient has had some random elevated blood pressures with return to baseline nothing consistently elevated. Patient has history of preeclampsia and frequency precautions were given to patient. Patient is urged to check her blood pressure at home and with any elevated blood pressures she is urged to call to be evaluated. Patient states understanding and will call if necessary. Patient Condition at Discharge: Good Plan - Discharge Summary New Discharge Prescriptions: No Action Vit No.179/Iron/Folic [ Tablet] 1 tablet PO DAILY Aspirin [[place] Aspirin EC] 81 mg PO DAILY Discharge Medication List Aspirin [[place] Aspirin EC] 81 mg PO DAILY 07/27/22 [History] Vit No.179/Iron/Folic [ Tablet] 1 tablet PO DAILY 07/27/22 [History] Follow up Appointment(s)/Referral(s): Anna Lin DO [Doctor of Osteopathic Medicine] - 2 Weeks Patient Instructions/Handouts: (DC), (GEN)
[2022-07-29] MEDS: SENNOSIDES-DOCUSATE SODIUM 1 EACH TAB PO SCH (09:46)
== END 2022-07-29 12:00 | disposition home or self-care (01) | DRG 788 ==
LOC: 4FBP 01:55 → UNDOADMIN 01:55
PROVIDERS: ADMIT Obstetrics & Gynecology Obstetrics; ATTEND Obstetrics & Gynecology Obstetrics
PROC: 10D00Z1 Extraction of Products of Conception, Low, Open Approach (ICD-10-PCS; principal; 2022-07-27 09:34)
DX: O76 Abnormality in fetal heart rate and rhythm complicating labor and delivery (principal); O34.211 Maternal care for low transverse scar from previous cesarean delivery; Z3A.39 39 weeks gestation of pregnancy; Z37.0 Single live birth; O24.420 Gestational diabetes mellitus in childbirth, diet controlled; O99.62 Diseases of the digestive system complicating childbirth; E28.2 Polycystic ovarian syndrome; K66.0 Peritoneal adhesions (postprocedural) (postinfection); Z83.3 Family history of diabetes mellitus; Z79.82 Long term (current) use of aspirin
CPT/HCPCS: 59025; 84112; 85025; 86850; 86900; 86901; 88307; 99213

== ENCOUNTER → 2022-09-21 | Outpatient (CLI) | payer OTHER ==
[2022-09-21 12:00] LABS: Glucose 2 Hour 92 mg/dL
== END | disposition home or self-care (01) ==
LOC: LABWHC1 08:40
PROVIDERS: ATTEND Obstetrics & Gynecology Obstetrics
DX: Z00.00 Encounter for general adult medical examination without abnormal findings (principal)
CPT/HCPCS: 36415; 82947; 82950

== ENCOUNTER 2024-10-23 09:45 | Inpatient (IN) | payer BC, OTHER ==
[2024-10-23] MEDS ORDERED: miSOPROStoL 200 MCG TAB PO PRN (10:12)
[2024-10-23] MEDS ORDERED: METHYLERGONOVINE 0.2 MG/ML 1 ML AMP IM PRN (10:12)
[2024-10-23] MEDS ORDERED: TRANEXAMIC 1,000 MG/100ML-NACL 1,000 MG in EMPTY BAG 1 BAG IV PRN (10:12)
[2024-10-23] MEDS ORDERED: OXYTOCIN 10 UNIT/ML 1 ML VIAL IM PRN (10:12)
[2024-10-23] MEDS ORDERED: CARBOPROST TROMETHAMINE 250 MCG/ML 1 ML AMP IM PRN (10:12)
[2024-10-23] MEDS ORDERED: OXYTOCIN 30 UNITS/500 ML NS 30 UNIT in SALINE 1 500ML.BAG IV SCH (10:15)
[2024-10-23] MEDS: LACTATED RINGERS 1,000 ML IV SCH ×2 (10:26→13:38)
[2024-10-23] MEDS: CITRIC ACID-SODIUM CITRATE 15 ML CUP PO ONE (10:27)
[2024-10-23 10:28] LABS: Glucose,Whole Blood 75 mg/dL (70-110)
[2024-10-23 10:44] LABS: Basophils % (A) 0 %; Eosinophils % (A) 1 %; HCT 41.3 % (34.0-46.0); HGB 13.8 gm/dL (11.4-16.0); Lymphocytes # (A) 1.5 k/uL (1.0-4.8); Lymphocytes % (A) 16 %; MCH 30.1 pg (25.0-35.0); MCHC 33.5 g/dL (31.0-37.0); Mean Platelet Volume 9.8; Monocytes # (A) 0.4 k/uL (0-1.0); Monocytes % (A) 5 %; Neutrophils # (A) 7.1 k/uL (1.3-7.7); Neutrophils % (A) 77 %; Platelet Count 212 k/uL (150-450); RBC 4.59 m/uL (3.80-5.40); RDW 14.4 % (11.5-15.5); WBC 9.2 k/uL (3.8-10.6)
[2024-10-23] MEDS ORDERED: OXYTOCIN 30 UNITS/500 ML NS BAG IV ONE (12:09)
[2024-10-23] MEDS ORDERED: MORPHINE SULFATE (PF) 0.3 MG/0.3 ML SYR ONE (12:09)
[2024-10-23] MEDS ORDERED: NALBUPHINE (ANES) 10 MG/ML - 1 ML AMP ONE (12:09)
[2024-10-23] MEDS ORDERED: ONDANSETRON 4 MG/2 ML VIAL ONE (12:09)
--- NOTE | 2024-10-23 13:15 | P.HPOB ---
History of Present Illness H&P Date: 10/23/24 Chief Complaint: IUP at 39 and 1/7 weeks, history of section x 2, d esires RCS 39-year-old 4 para 2-0-1-2 at 39 and 1 sevenths weeks that presents to labor and delivery for scheduled repeat section. Patient has a history of section x 2 and desires repeat with tubal ligation as she is done with family-planning. Patient was receiving routine care which was complicated by diagnosis of gestational diabetes with diet controlled blood sugars. Today patient notes good movement occasional [place] no loss of fluid or vaginal bleeding. On blood work this patient is a bit of a positive, rubella status immune, hepatitis B surface engine negative, HIV negative, RPR is nonreactive, hepatitis C is nonreactive, grew beta strep cultures negative Review of Systems Constitutional: Denies chills, Denies fatigue, Denies fever Ears, nose, mouth and throat: Denies headache Cardiovascular: Denies leg edema Respiratory: Denies dyspnea Gastrointestinal: Denies constipation, Denies diarrhea, Denies nausea, Denies vomiting Genitourinary: Reports Past Medical History Past Medical History: No Reported History History of Any Multi-Drug Resistant Organisms: None Reported Past Surgical History: Section Past Anesthesia/Blood Transfusion Reactions: No Reported Reaction Past Psychological History: No Psychological Hx Reported Smoking Status: Never smoker Past Alcohol Use History: None Reported Past Drug Use History: None Reported - Past Family History Father Family Medical History: Diabetes Mellitus, Hyperlipidemia, Hypertension Mother Family Medical History: Diabetes Mellitus, Hypertension Medications and Allergies Home Medications Medication Instructions Recorded Confirmed Type Aspirin [[place] Aspirin EC] 81 mg PO DAILY 07/27/22 10/23/24 History Vit No.179/Iron/Folic 1 tablet PO DAILY 07/27/22 10/23/24 History [ Tablet] Allergies Allergy/AdvReac Type Severity Reaction Status Date / Time adhesive tape AdvReac Rash/Hives Verified 10/23/24 10:10 Exam Osteopathic Statement: *. No significant issues noted on an osteopathic structural exam other than those noted in the History and Physical/Consult. Vital Signs Temp Pulse Resp BP Pulse Ox 10/23/24 10:16 96.9 F L 72 18 165/80 98 Intake and Output 10/22/24 10/23/24 10/23/24 22:59 06:59 14:59 Other: Weight 84.368 kg Targeted physical exam is performed this date General Is well-nourished well- developed female in no acute distress, breathing is nonlabored, heart has a regular rate rhythm, abdomen is gravid, heart tones noted be category 1 and she is not fabiana. Cervical exam is deferred. Results Result Diagrams: 10/23/24 10:26 Assessment and Plan (1) GDM (gestational diabetes mellitus), class A1 Current Visit: Yes Status: Acute Code(s): O24.410 - GESTATIONAL DIABETES MELLITUS IN , DIET CONTROLLED SNOMED Code(s): 98059891 (2) AMA (advanced maternal age) multigravida 35+ Current Visit: No Status: Acute Code(s): O09.529 - SUPERVISION OF ELDERLY MULTIGRAVIDA, UNSPECIFIED TRIMESTER SNOMED Code(s): 900513893 (3) H/O section Current Visit: No Status: Acute Code(s): Z98.891 - HISTORY OF UTERINE SCAR FROM PREVIOUS SURGERY SNOMED Code(s): 287616311 (4) Term Current Visit: No Status: Acute Code(s): Z34.80 - ENCOUNTER FOR SUPRVSN OF NORMAL , UNSP TRIMESTER SNOMED Code(s): 49115714 Plan: 39-year-old 4 para 2-0-1-2 at 39 and 1 sevenths weeks presents for repeat section. section is discussed in detail. Patient requests bilateral salpingectomy as she is done with family-planning. Questions are answered and risks are reviewed. Anesthesia into see patient will proceed to operating suite.
[2024-10-23] MEDS ORDERED: SIMETHICONE 80 MG CHEWABLE PO PRN (13:19)
[2024-10-23] MEDS ORDERED: diphenhydrAMINE 50 MG/ML 1 ML VIAL IVP PRN ×2 (13:19)
[2024-10-23] MEDS ORDERED: ZOLPIDEM 5 MG TAB PO PRN (13:19)
[2024-10-23] MEDS ORDERED: METOCLOPRAMIDE 5 MG/ML 2 ML VIAL IVP PRN (13:19)
[2024-10-23] MEDS ORDERED: diphenhydrAMINE 25 MG CAP PO PRN (13:19)
[2024-10-23] MEDS ORDERED: NALOXONE 0.4 MG/ML 1 ML VIAL IV PRN (13:19)
[2024-10-23] MEDS ORDERED: diphenhydrAMINE 50 MG CAP PO PRN (13:19)
[2024-10-23] MEDS ORDERED: ONDANSETRON 4 MG/2 ML VIAL IVP PRN (13:19)
--- NOTE | 2024-10-23 13:19 | P.OP ---
Date of Procedure: 10/23/24 Preoperative Diagnosis: IUP at 30 and 1 sevenths weeks, history of section x 2, desires repeat, family status complete Postoperative Diagnosis: Same Procedure(s) Performed: Repeat section with bilateral salpingectomy Anesthesia: spinal Surgeon: Anna Lin Head Of Physics #1: Yuli Baldwin Estimated Blood Loss (ml): 330 IV fluids (ml): 800 Urine output (ml): 50 Pathology: none sent Condition: stable Disposition: observation Indications for Procedure: History of section x 2, desires repeat, family status complete desires bilateral salpingectomy. Permanence of procedure is discussed and patient states understanding and states she is done with childbearing Operative Findings: Viable male delivered at 1234, weight of 6 pounds 15 ounces, Apgars of 9 and 9 at 1 and 5 minutes respectively. Significant anterior scarring was appreciated. Description of Procedure: Patient was taken back to the operating suite where spinal anesthesia was found to be adequate by the anesthesia department. She was prepped and draped in the normal sterile fashion in the dorsal supine position. A Pfannenstiel skin incision was made with a scalpel and carried through the underlying layer of fascia. The fascia was incised in the midline and extended laterally. The superior aspect of the fascial incision was then grasped with Josefina clamps, elevated and the underlying rectus muscle was dissected off sharply. Attention was then turned to the inferior aspect of the fascial incision which was grasped with Josefina clamps, elevated and the underlying rectus muscles dissected off sharply. The rectus muscles were the midline and the incision was extended superiorly and inferiorly with good visualization of the bladder. The bladder blade was inserted and the vesicouterine peritoneum was identified and the bladder flap was created using sharp dissection. The bladder blade was then reinserted into the pelvis and a hysterotomy incision was made with a scalpel. Copious clear fluid was appreciated the infant was noted to be in a vertex presentation and delivered without difficulty. The umbilical cord was doubly clamped and cut and the placenta was delivered spontaneously intact with a three-vessel cord being noted. Infant did note spontaneous cry and was handed off to awaiting RN. The uterus was exteriorized and cleared of all clots and debris. The uterine incision was closed with 0 Vicryl in a running locked fashion. A second imbricating suture was performed. The right fallopian tube was elevated and the LigaSure was used to transect through the mesosalpinx toward the cornual region. This fallopian tube was then passed off the surgical field. This was then repeated on the opposite side. Both tubal sites were noted to be hemostatic after removal of the fallopian tube. Uterus was then returned to the abdomen. Hysterotomy and site was inspected and noted to be hemostatic. The gutters were cleared of all clots and debris. The peritoneum was then loosely reapproximated. The rectus muscles were inspected and found to be hemostatic. The fascia was closed with 0 Vicryl in a running fashion from 1 lateral edge to the midline and the other lateral edge to the midline. Subcutaneous tissue was irrigated and any points of bleeding were made hemostatic with the Bovie. Subcutaneous tissue was closed with 3-0 Vicryl in a running fashion. Skin was then closed with 4-0 Vicryl in a subcuticular fashion. Steri-Strips and sterile dressings were applied. All counts were noted be correct x 2. Patient and tolerated delivery well and are resting comfortably.
[2024-10-23] MEDS: ACETAMINOPHEN IV (For NPO) 1,000 MG in EMPTY BAG 1 BAG IVPB ONE (13:54)
[2024-10-23] MEDS: IBUPROFEN IV 800 MG in SODIUM CHLORIDE 0.9% 250 ML IV ONE (18:09)
[2024-10-23] MEDS: ACETAMINOPHEN TAB 500 MG TAB PO SCH (21:28)
[2024-10-23] MEDS: SENNOSIDES-DOCUSATE SODIUM 1 EACH TAB PO SCH (21:28)
[2024-10-24] MEDS: IBUPROFEN 800 MG TAB PO SCH (00:51)
[2024-10-24 06:12] LABS: Basophils % (A) 0 %; Eosinophils # (A) 0.1 k/uL (0-0.7); Eosinophils % (A) 1 %; HCT 35.7 % (34.0-46.0); HGB 11.7 gm/dL (11.4-16.0); Lymphocytes # (A) 1.3 k/uL (1.0-4.8); Lymphocytes % (A) 12 %; MCH 29.8 pg (25.0-35.0); MCHC 32.7 g/dL (31.0-37.0); MCV 91.1 fL (80.0-100.0); Mean Platelet Volume 8.4; Monocytes # (A) 0.5 k/uL (0-1.0); Monocytes % (A) 4 %; Neutrophils # (A) 8.8 k/uL (1.3-7.7); Neutrophils % (A) 81 %; Platelet Count 158 k/uL (150-450); RBC 3.91 m/uL (3.80-5.40); RDW 14.5 % (11.5-15.5); WBC 10.8 k/uL (3.8-10.6)
--- NOTE | 2024-10-24 11:51 | P.PN ---
Progress Note - Text 10/24/24 623am 29-year-old female status post with spinal Duramorph. Patient seen and evaluated for postop pain control, she has a VAS of 3 with no complaints of nausea vomiting or pruritus.
[2024-10-24] MEDS ORDERED: IBUPROFEN 800 MG TAB PO SCH (16:00)
--- NOTE | 2024-10-25 08:26 | P.PNOBGPC ---
Subjective - Subjective Principal diagnosis: Postop day 2, repeat section with bilateral salpingectomy Interval history: Patient is overall doing well. Her pain has increased today. She is ambulating and voiding without difficulty. She is tolerating a regular diet without nausea or vomiting. She did have a bowel movement yesterday. Continued bruising is appreciated on her mons. She is bottlefeeding. Patient reports: Reports appetite normal, Reports voiding normally, Reports pain well controlled, Reports ambulating normally [place]: doing well, bottle feeding Objective - Vital Signs Latest vital signs: Vital Signs Temp Pulse Resp BP Pulse Ox 10/25/24 04:00 98.2 F 66 18 122/62 10/25/24 00:00 98.3 F 66 18 130/66 10/24/24 20:00 98.1 F 66 18 122/62 10/24/24 15:42 139/81 10/24/24 15:40 98.8 F 62 20 150/79 100 10/24/24 12:00 98.4 F 66 18 137/92 99 Intake and Output 10/24/24 10/25/24 10/25/24 22:59 06:59 14:59 Output Total 500 600 Balance -500 -600 Output: Urine 500 600 Other: Voiding Method Toilet # Voids 1 - Exam Extremities: Present: normal, edema Abdomen: Present: normal appearance Incision: Present: normal, dry, intact, other (Steris intact with old blood appreciated on the midportion. The mons is noted to be diffusely bruised) Uterus: Present: normal, firm Assessment and Plan (1) GDM (gestational diabetes mellitus), class A1 Current Visit: Yes Status: Acute Code(s): O24.410 - GESTATIONAL DIABETES MELLITUS IN , DIET CONTROLLED SNOMED Code(s): 24180641 (2) AMA (advanced maternal age) multigravida 35+ Current Visit: No Status: Acute Code(s): O09.529 - SUPERVISION OF ELDERLY MULTIGRAVIDA, UNSPECIFIED TRIMESTER SNOMED Code(s): 003299732 (3) H/O section Current Visit: No Status: Acute Code(s): Z98.891 - HISTORY OF UTERINE SCAR FROM PREVIOUS SURGERY SNOMED Code(s): 611489617 (4) Term Current Visit: No Status: Acute Code(s): Z34.80 - ENCOUNTER FOR SUPRVSN OF NORMAL , UNSP TRIMESTER SNOMED Code(s): 97982486 Plan: Encouraged patient take oxy for pain control as she is quite uncomfortable. She states the ibuprofen and Tylenol are taking it down to a manageable level. She does want to go home later today, would like better pain control prior to discharge.
[2024-10-25 09:18] VITALS: RESP 20
--- NOTE | 2024-10-25 12:59 | P.DS ---
Providers Date of admission: 10/23/24 09:45 Expected date of discharge: 10/25/24 Attending physician: Anna Lin Primary care physician: Stated None - Discharge Diagnosis(es) (1) GDM (gestational diabetes mellitus), class A1 Current Visit: Yes Status: Acute (2) AMA (advanced maternal age) multigravida 35+ Current Visit: No Status: Acute (3) H/O section Current Visit: No Status: Acute (4) Term Current Visit: No Status: Acute (5) S/P section Current Visit: No Status: Acute Hospital Course: 39-year-old 4 now para 3-0-1-3 that presented to labor and delivery at 39 weeks for scheduled repeat section with bilateral salpingectomy. Patient has been receiving routine care which has been essentially uncomplicated. Patient did have a diagnosis of gestational diabetes which has been well-controlled with diet alone. Patient has a history of 2 prior C- section and did request a repeat, patient is done with family-planning therefore required bilateral salpingectomy. Permanence of procedure was discussed and patient stated understanding and states she is done with childbearing. For full details in this patient please see the dictated history and physical. Patient was taken back to the operating suite where a viable male infant was delivered at 1234, weight of 6 pounds 15 ounces, Apgars of 9 and 9 at 1 and 5 minutes respectively. Bilateral salpingectomy was performed. For full details on the please see the dictated operative report. Patient's postoperative course has been complicated by moderately well-controlled pain, patient has been resistant to taking Oxy but did take 1 oxy for pain control a .m. She is ambulating and voiding without difficulty. She is passing gas without difficulty and did have 1 bowel movement. She denies concerns and is ultimately requesting discharge home later tonight. Discussed if pain is well-controlled she may be discharged home with oral pain medication. Patient Condition at Discharge: Good Plan - Discharge Summary New Discharge Prescriptions: No Action Vit No.179/Iron/Folic [ Tablet] 1 tablet PO DAILY Aspirin [[place] Aspirin EC] 81 mg PO DAILY Discharge Medication List Aspirin [[place] Aspirin EC] 81 mg PO DAILY 07/27/22 [History] Vit No.179/Iron/Folic [ Tablet] 1 tablet PO DAILY 07/27/22 [History] Follow up Appointment(s)/Referral(s): Anna Lin DO [Doctor of Osteopathic Medicine] - 11/13/24 1:00 pm (Post Appointment 12-04-2024 at 1:15pm) Patient Instructions/Handouts: (DC), (GEN) Activity/Diet/Wound Care/Special Instructions: No tub baths or intercourse until 6 weeks post . [id number] ibuprofen and Tylenol as needed for pain. Ibuprofen 600 mg or 3 tablets every 6 hours as needed for pain. Patient is to make a routine postoperative check in 2 weeks. Should she have any concerns prior to this appointment she is asked to call the office. Discharge Disposition: HOME SELF-CARE
[2024-10-25 19:40] VITALS: BP 142/80; PULSE 65; TEMP 98.5
== END 2024-10-25 17:15 | disposition home or self-care (01) | DRG 785 ==
LOC: 4FBP 09:45
PROVIDERS: ADMIT Obstetrics & Gynecology Obstetrics; ATTEND Obstetrics & Gynecology Obstetrics
PROC: 0UT70ZZ Resection of Bilateral Fallopian Tubes, Open Approach (ICD-10-PCS; 2024-10-23)
PROC: 10D00Z1 Extraction of Products of Conception, Low, Open Approach (ICD-10-PCS; principal; 2024-10-23 12:00)
DX: O34.211 Maternal care for low transverse scar from previous cesarean delivery (principal); O24.420 Gestational diabetes mellitus in childbirth, diet controlled; G89.18 Other acute postprocedural pain; Z37.0 Single live birth; Z3A.39 39 weeks gestation of pregnancy; Z79.82 Long term (current) use of aspirin; Z83.3 Family history of diabetes mellitus; Z30.2 Encounter for sterilization
CPT/HCPCS: 85025; 86850; 86900; 86901; 88302